=== PATIENT | male | born 1960 | race Asian ===

== ENCOUNTER 2019-09-27 17:16 | Emergency (ER) | payer OTHER ==
[~2019-09-27] VITALS: Ht 162.6 cm; Wt 74.4 kg
[2019-09-27 17:48] LABS: PLATELET COUNT 224 K/uL (142-355)
[2019-09-27 17:53] LABS: POTASSIUM 4.8 mmol/L (3.6-5.2)
[2019-09-27 19:19] VITALS: BP 118/75; TEMP 99
[2019-09-27] MEDS ORDERED: ASPIRIN ADULT L81 MG PO (20:12)
[2019-09-27] MEDS ORDERED: DAILY VIT PO (20:14)
[2019-09-27] MEDS ORDERED: HALO2CON2 PO (20:16)
[2019-09-27] MEDS ORDERED: JANUVIA100 MG PO (20:18)
[2019-09-27] MEDS ORDERED: HALO50IN4 IM (20:18)
[2019-09-27] MEDS ORDERED: LISI5TAB10 PO (20:19)
[2019-09-27] MEDS ORDERED: MI-ACID GAS80 MG PO (20:20)
[2019-09-27] MEDS ORDERED: MONT10TA PO (20:21)
[2019-09-27] MEDS ORDERED: LIPITOR20 MG PO (20:22)
[2019-09-27] MEDS ORDERED: DIVALPROEX500 MG PO (20:23)
[2019-09-27] MEDS ORDERED: GLIP10TA55 PO (20:24)
[2019-09-27] MEDS ORDERED: OMEPRAZOLE DR20 MG PO (20:25)
[2019-09-27] MEDS ORDERED: CYCL10TA35 PO (20:26)
[2019-09-27] MEDS ORDERED: BASAGLAR K100 UNIT/M SC (20:28)
[2019-09-27] MEDS ORDERED: TRAZ50TA36 PO (20:28)
[2019-09-27] MEDS ORDERED: MELADOX3 MG PO (20:32)
[2019-09-27] MEDS ORDERED: CHLORPROMAZINE100 MG PO (20:58)
[2019-09-27] MEDS ORDERED: BREO ELLIPTA 201 INH INH (21:24)
[2019-09-27] MEDS ORDERED: CIPRO OPTH (21:32)
[2019-09-27] MEDS ORDERED: ACCUCHECKS (21:36)
[2019-09-27] MEDS ORDERED: NOVOLOG FL100 UNIT/M SC (21:38)
[2019-09-27] MEDS ORDERED: VICTOZA18 MG/3 ML SC (21:40)
== END 2019-09-27 19:19 | disposition other institution (70) ==
LOC: ED 17:16
PROVIDERS: Student in an Organized Health Care Education/Training Program
DX: F20.89 Other schizophrenia (principal); F22 Delusional disorders; R00.0 Tachycardia, unspecified; I45.19 Other right bundle-branch block; Z04.6 Encounter for general psychiatric examination, requested by authority
CPT/HCPCS: 80053; 85027; 93005; 96372; 99283; J1815